=== PATIENT | female | born 1955 | race Caucasian/White ===

== ENCOUNTER → 2020-12-09 07:24 | Outpatient (CLI) | payer BC, SELFPAY ==
--- NOTE | ~2020-12-09 | US_ITS ---
EXAMINATION: US right upper quadrant DATE: 12/09/2020 07:47 INDICATION: Autoimmune hepatitis. TECHNIQUE: Multiple grayscale and Doppler ultrasound images of the abdomen were obtained. COMPARISON: Ultrasound abdomen 09/23/2018 FINDINGS: The visualized portions of the head and body of the pancreas are normal. The liver is cyndee l without focal lesion. No liver surface nodularity. There is normal flow in main portal vein. The ga llbladder is normal in size. No gallstones or gallbladder wall thickening. There is no sonographic Mu rphy sign. The common duct is normal and measures 3 mm. IMPRESSION: 1. Normal right upper quadrant ultrasound. Reviewed, dictated and finalized at location A. GREASER
== END ==
DX: K75.4 Autoimmune hepatitis (principal)
CPT/HCPCS: 76705

== ENCOUNTER → 2020-12-21 08:15 | Outpatient (CLI) | payer BC, SELFPAY ==
--- NOTE | ~2020-12-21 | MMUS_ITS ---
EXAMINATION: MM diagnostic neel LT w tonya, US breast LT limited HISTORY: Pain in the upper outer quadrant of the left breast TECHNIQUE: Craniocaudal, mediolateral, and mediolateral oblique 3-D tomosynthesis images of the left breast were performed and synthetic 2-D images were generated. CAD analysis was submitted and interpr eted. High resolution limited left breast ultrasound was performed. COMPARISON: No prior mammogram is currently available for comparison. BREAST PARENCHYMAL COMPOSITION: The breasts are heterogeneously dense, which may obscure small masses . FINDINGS: MAMMOGRAPHIC FINDINGS: There is no evidence of suspicious mass, calcification, or architectural distortion to suggest [place]. No mammographic correlate is identified for the patient's reported left breast pain. ULTRASOUND: There is no evidence of focal abnormal solid or cystic mass in the vicinity of the patient's left jing ast pain. IMPRESSION: 1. No specific mammographic or sonographic correlate is identified for the patient's left breast pain . Further evaluation at this time should be based on clinical assessment. Continued follow-up physica l examination is recommended. 2. Recommend routine screening mammography in one year. BI-RADS Category 1: Negative Reviewed, dictated and finalized at location A. IMPRESSION: 1. No specific mammographic or sonographic correlate is identified for the dipti ent's left breast pain. Further evaluation at this time should be based on clin ical assessment. Continued follow-up physical examination is recommended. 2. Recommend routine screening mammography in one year. BI-RADS Category 1: Negative
== END ==
PROVIDERS: PCP Family Medicine; Visit Provider Nurse Practitioner Family
DX: N64.4 Mastodynia (principal)
CPT/HCPCS: 76642; 77061; 77065; G0279

== ENCOUNTER → 2021-12-24 08:03 | Outpatient (CLI) | payer BC, SELFPAY ==
--- NOTE | ~2021-12-24 | US_ITS ---
EXAMINATION: US right upper quadrant DATE: 12/24/2021 08:56 INDICATION: Autoimmune hepatitis. TECHNIQUE: Multiple grayscale and Doppler ultrasound images of the abdomen were obtained. COMPARISON: Ultrasound 12/09/2020 FINDINGS: The visualized portions of the head and body of the pancreas are normal. The liver is cyndee l without focal lesion. No liver surface nodularity. There is normal flow in main portal vein. The ga llbladder is normal in size. No gallstones or gallbladder wall thickening. There was no sonographic M urphy sign. The common duct is normal and measures 4 mm. Right kidney is normal. IMPRESSION: 1. Normal right upper quadrant ultrasound. Reviewed, dictated and finalized at location A.
== END ==
PROVIDERS: PCP Family Medicine
DX: K75.4 Autoimmune hepatitis (principal)
CPT/HCPCS: 76705

== ENCOUNTER → 2022-12-11 07:30 | Outpatient (CLI) | payer MEDICARE, SELFPAY ==
--- NOTE | ~2022-12-11 | US_ITS ---
Limited Abdominal Sonogram: Real-time sonographic imaging of the right upper quadrant was performed. Clinical History: Autoimmune hepatitis Findings: The liver appears normal with no evidence of mass lesion or bile duct dilatation. Main por madhuri vein demonstrates normal direction of flow. The gallbladder is well distended, and appears normal with no evidence of gallstone or wall thickening. The common bile duct measures 5 mm. The visualize d pancreas, aorta, and IVC are unremarkable. Right kidney measures 9.3 cm in length, without evidence for hydronephrosis. Impression: No significant abnormality seen. Reviewed, dictated and finalized at location . Impression: No significant abnormality seen.
== END ==
PROVIDERS: PCP Family Medicine
DX: K75.4 Autoimmune hepatitis (principal)
CPT/HCPCS: 76705